=== PATIENT | female | born 1960 | race Caucasian/White ===

== ENCOUNTER → 2017-11-06 18:55 | Outpatient (CLI) | payer MEDICAID | END | disposition home or self-care (01) | LOC: D.MAMMO 15:45 | DX: Z12.31 Encounter for screening mammogram for malignant neoplasm of breast (principal) ==

== ENCOUNTER → 2017-12-04 11:21 | Outpatient (CLI) | payer MEDICAID | END | disposition home or self-care (01) | LOC: D.LABREF 11:21 | DX: E11.9 Type 2 diabetes mellitus without complications (principal) ==

== ENCOUNTER → 2017-12-04 12:21 | Outpatient (CLI) | payer MEDICAID | END | disposition home or self-care (01) | LOC: D.LABREF 12:21 | PROVIDERS: Orthopaedic Surgery | DX: M16.12 Unilateral primary osteoarthritis, left hip (principal); Z11.8 Encounter for screening for other infectious and parasitic diseases ==

== ENCOUNTER 2018-01-02 09:30 | Inpatient (IN) | payer MEDICAID ==
[~2018-01-02] VITALS: Ht 175.3 cm; Wt 74.1 kg
--- NOTE | ~2018-01-02 | MORECARE ---
CASE MANAGEMENT DISCHARGE SUMMARY PATIENT: VISH BRUNO UNIT: [id number] ADM DATE: 01/07/18 AGE: 57 : 64 SEX: F ROOM/BED: D.2208 AUTHOR: SATHYA,DOC PHYSICIAN: REFERRING PHYSICIAN: DAHLIA MAGANA MD DATE OF SERVICE: 01/08/18 Discharge Plan Patient Name: VISH BRUNO Facility: [facility]:[place] : 1960 Planned Disposition: Home Anticipated Discharge Date: Discharge Date: Expected LOS: Initial Reviewer: [email or web address] Initial Review Date: 01/07/2018 Generated: 01/08/18 11:52 am Comments DCP- Discharge Planning Updated by [email or web address]: Jaylene Montanez on 01/08/18 9:[address] Patient Name: VISH BRUNO Admission Status: Elective Accout number: [id number] Admission Date: 01-07-2018 : 1960 Admission Diagnosis: Attending: DAHLIA MAGANA Current LOS: 1 Anticipated DC Date: Planned Disposition: Home Primary Insurance: [employer] OPTIONS ALEXANDER Discharge Planning Comments: CM met with patient to assess discharge planning needs. Patient plans to discharged to [facility] to recover. I explained to her that her insurance would probably not cross state lines, so she would not be able to get home health. She stated that she will be back in 2 weeks & that her daughter workd for healthcare. She denies any DME & will need a walker and BCS prior to discharge. I told her I would talk with her daughter when she came to the hospital. CM will continue to follow and assist with DC planning Handling Tech: Jaylene Montanez DCPIA - Discharge Planning Initial Assessment Updated by [email or web address]: Jaylene Montanez on 01/08/18 10:42 am * Is the patient Alert and Oriented? Yes * How many steps to enter\exit or inside your home? * PCP Arley * Pharmacy [facility] [address] * Preadmission Environment Home with Family * ADLs Independent * Equipment None * List name and contact numbers for known caregivers / representatives who currently or will assist patient after discharge: Maggy Job * Verbal permission to speak to the caregivers and representatives has been obtained from the patient. Yes * Community resources currently utilized None * Additional services required to return to the preadmission environment? Yes * Can the patient safely return to the preadmission environment? Yes * Has this patient been hospitalized within the prior 30 days at any hospital? No Last DP export: 01/08/18 9:42 Patient Name: VISH BRUNO Page [id number] at 1052 All edits/amendments must be made on the electronic document DICTATION DATE: 01/08/181050 MATERIAL HANDLER 1ST SHIFT: DM 01/08/181050 RPT#: [id number] DC DATE: STATUS: ADM IN [facility] [address] [place] [address] END OF REPORT
--- NOTE | ~2018-01-02 | OP ---
PATIENT NAME: VISH BRUNO MEDICAL RECORD: [id number] :64 LOCATION:D.MS Dumont2208 ADMISSION DATE:01/07/18 SURGEON: DAHLIA MAGANA MD DATE OF OPERATION: 01/07/2018 PREOPERATIVE DIAGNOSIS: Severe osteoarthritis, left hip. POSTOPERATIVE DIAGNOSIS: Severe osteoarthritis, left hip. PROCEDURE: Left total hip arthroplasty. SURGEON: Dahlia Magana MD ANESTHESIA: General. INTRAOPERATIVE COMPLICATIONS: None. SUMMARY OF PATHOLOGIC FINDINGS: The patient has a substantial osteoarthritis of the left hip consistent with the preoperative radiographs. IMPLANTS USED: Michaela Accolade II with a Trident II cup size 5, Accolade stem size 36 alpha code E, polyethylene insert, 36 + 0 femoral head, and a 52 E cluster hole Tritanium 2 cup. OPERATIVE SUMMARY IN DETAIL: After obtaining the appropriate preoperative orthopedic surgery consent as well as anesthetic consultation, evaluation, and clearance, the patient was brought to the operating room and placed on the operating table in supine position. After general laryngeal mask airway was administered, the patient was placed in a right lateral decubitus position. All pressure points were well padded to include down leg peroneal pad as well as axillary roll. The patient was held firmly to the operating room table using the vacuum pack suction system. Left lower extremity and hip were then prepped and draped in a routine sterile fashion. Curvilinear incision made of the greater trochanter, taken down to the level of the IT band, was split in line with fibers of the IT band to reveal the gluteus medius and minimus. The gluteus medius and minimus were reflected anteriorly. The hip capsule was incised in a T-type fashion followed by dislocation of the hip joint. The proximal neck cutting guide for the Accolade II system was utilized to create the proximal neck cut. This was then followed by complete exposure of the acetabulum. Circumferential labrectomy was then followed by serial and sequential reaming to 51 for placement of a Trident II 52 cup. Trident II 52 cup went in very nicely with good capture. Polyethylene was then snapped into place and checked for stability. Attention was then returned to the proximal femur where serial and sequential reaming and broaching were done for a size 5 Accolade II TMZF coated stem, which was put into place. Trials were then undertaken. It was felt that the +0 head was the most appropriate and +0 head was stamped into place in a Mendes taper. The hip was reduced, taken through range of motion and found to be stable in all planes. Intraoperative radiographs showed good position and placement with reestablishment of the patient's leg length. Wound was copiously irrigated at this multiple points. Hip capsule was closed with #2 Ethibond followed by #5 reapproximation of the gluteus medius and minimus in a transosseous fashion back to the greater trochanter. Having completed this, the IT band was closed using #2 Ethibond. This was then followed by #1 Vicryl, 2-0 Vicryl and skin patricia. Sterile dressings were applied. The patient was awakened, taken to recovery room in OPERATIVE REPORT [id number] VISH BRUNO stable condition. All final needle and sponge counts were correct. TRANSINT:[id number] Voice Confirmation ID: [id number] DOCUMENT ID: [id number] 01/21/2018 Edited to correct date of service, dm. CHINO LUNA, DAHLIA MCPHERSON at 1512 CC: [id number] DICTATION DATE: 01/11/18 1300 ASSISTANT REFINERY OPERATOR: 01/11/18 1310 DIS IN 01/09/18 [facility] [address] [place] [address]
--- NOTE | ~2018-01-02 | MORECARE ---
CASE MANAGEMENT DISCHARGE SUMMARY PATIENT: VISH BRUNO UNIT: [id number] ADM DATE: 01/07/18 AGE: 57 : 64 SEX: F ROOM/BED: D.2208 AUTHOR: SATHYA,DOC PHYSICIAN: REFERRING PHYSICIAN: DAHLIA MAGANA MD DATE OF SERVICE: 01/14/18 Discharge Plan Patient Name: VISH BRUNO Facility: [facility]:[place] : 1960 Planned Disposition: Home Anticipated Discharge Date: Discharge Date: 01/09/2018 Expected LOS: 0 Initial Reviewer: [email or web address] Initial Review Date: 01/07/2018 Generated: 01/14/18 11:12 am Comments DCP- Discharge Planning Updated by [email or web address]: Jaylene Montanez on 01/08/18 9:[address] Patient Name: VISH BRUNO Admission Status: Elective Accout number: [id number] Admission Date: 01-07-2018 : 1960 Admission Diagnosis: Attending: DAHLIA MAGANA Current LOS: 1 Anticipated DC Date: Planned Disposition: Home Primary Insurance: [employer] PRVT OPTIONS ALEXANDER Discharge Planning Comments: CM met with patient to assess discharge planning needs. Patient plans to discharged to [facility] to recover. I explained to her that her insurance would probably not cross state lines, so she would not be able to get home health. She stated that she will be back in 2 weeks & that her daughter workd for healthcare. She denies any DME & will need a walker and BCS prior to discharge. I told her I would talk with her daughter when she came to the hospital. CM will continue to follow and assist with DC planning Brim Raiser: Jayleen Montanez DCPIA - Discharge Planning Initial Assessment Updated by [email or web address]: Jaylene Montanez on 01/08/18 10:42 am * Is the patient Alert and Oriented? Yes * How many steps to enter\exit or inside your home? * PCP Arley * Pharmacy [facility] [address] * Preadmission Environment Home with Family * ADLs Independent * Equipment None * List name and contact numbers for known caregivers / representatives who currently or will assist patient after discharge: Maggy Job * Verbal permission to speak to the caregivers and representatives has been obtained from the patient. Yes * Community resources currently utilized None * Additional services required to return to the preadmission environment? Yes * Can the patient safely return to the preadmission environment? Yes * Has this patient been hospitalized within the prior 30 days at any hospital? No Last DP export: 01/08/18 9:52 Patient Name: VISH BRUNO Page [id number] at 1012 All edits/amendments must be made on the electronic document DICTATION DATE: 01/14/18 1012 EMBALMER ASSISTANT: OLIVER 01/14/18 1012 RPT#: [id number] DC DATE:01/09/18 STATUS: DIS IN [facility] [address] [place] [address] END OF REPORT
--- NOTE | ~2018-01-02 | MORECARE ---
CASE MANAGEMENT DISCHARGE SUMMARY PATIENT: VISH BRUNO UNIT: [id number] ADM DATE: 01/07/18 AGE: 57 : 64 SEX: F ROOM/BED: D.2208 AUTHOR: JEROME MCDONNELL PHYSICIAN: REFERRING PHYSICIAN: ADHLIA MAGANA MD DATE OF SERVICE: 01/08/18 Discharge Plan Patient Name: VISH BRUNO [facility] [facility] 1960 Planned Disposition: Home Anticipated Discharge Date: Discharge Date: Expected LOS: Initial Reviewer: [email or web address] Initial Review Date: 01/07/2018 Generated: 01/08/18 11:42 am DCPIA - Discharge Planning Initial Assessment Updated by [email or web address]: Jaylene Montanez on 01/08/18 10:42 am * Is the patient Alert and Oriented? Yes * How many steps to enter\exit or inside your home? * PCP Arley * [facility] [address] [facility] [facility] * Preadmission Environment Home with Family * ADLs Independent * Equipment None * List name and contact numbers for known caregivers / representatives who currently or will assist patient after discharge: Maggy Bruno * Verbal permission to speak to the caregivers and representatives has been obtained from the patient. Yes * Community resources currently utilized None * Additional services required to return to the preadmission environment? Yes * Can the patient safely return to the preadmission environment? Yes * Has this patient been hospitalized within the prior 30 days at any hospital? No Patient Name: VISH BRUNO Page 12103 at 1042 All edits/amendments must be made on the electronic document DICTATION DATE: 01/08/18 1042 POST ANESTHESIA NURSE: OLIVER 01/08/18 1042 RPT#: [id number] DC DATE: STATUS: ADM IN [facility] [address] [place] [address] END OF REPORT
[~2018-01-02 09:30] MED LIST: COZAAR25 MG PO; GLIMEPIRIDE2 MG PO; GLUCOPHAGE1000 MG PO; LIPITOR10 MG PO; ULTRAM50 MG PO
[2018-01-02 12:41] LABS: BASOPHILS 0.5 % (0-2); EOSINOPHILS 4.1 % (0-7); HEMATOCRIT 43.2 % (36.0-48.0); HEMOGLOBIN 14.3 g/dL (12-16); IMMATURE GRANULOCYTES 0.6 % (0-5); MCH 30.8 pg (26.0-34.0); MCHC 33.1 g/dL (31.0-37.0); MCV 92.9 fL (80.0-100.0); MONOCYTES 6.7 % (2-11); NEUTROPHILS 64.1 % (40-80); PLATELET COUNT 253 10x3/uL (130-400); RBC 4.65 10x6/uL (4.00-5.40); RDW 13.5 % (11.5-14.5); WBC 10.1 10x3/uL (4.8-10.8)
[2018-01-02 12:59] LABS: CALC OSMOLALITY 281 mosm/kg (275-300); CALCIUM 9.2 mg/dL (8.5-10.1); CARBON DIOXIDE 26.5 mmol/L (21.0-32.0); CHLORIDE - SERUM 102 mmol/L (98-107); CREATININE - SERUM 0.8 mg/dL (0.6-1.3); GLUCOSE 125 mg/dL (74-106); POTASSIUM - SERUM 4.2 mmol/L (3.5-5.1); SODIUM 141 mmol/L (136-145); UREA NITROGEN 13 mg/dL (7-18); eGFR NON AFRICAN AMERICAN 79 mL/min (90-120)
[2018-01-02 13:00] LABS: APTT 31.8 SECONDS (22.8-39.4); INR 0.99 (0.85-1.17); PROTIME 12.7 SECONDS (11.6-15.0)
[2018-01-02 13:57] LABS: APPEARANCE CLEAR (CLEAR); BILIRUBIN NEGATIVE (NEGATIVE); COLOR YELLOW (YELLOW); GLUCOSE 250 mg/dL (NEGATIVE); KETONE NEGATIVE (NEGATIVE); NITRITE NEGATIVE (NEGATIVE); PROTEIN TRACE mg/dL (NEGATIVE); SPECIFIC GRAVITY 1.025 (1.005-1.020); UROBILINOGEN NORMAL (NORMAL)
[2018-01-02 14:05] LABS: EPITHELIAL CELLS 0-5 /hpf (0-5); WHITE CELLS - URINE RARE /hpf (0-5)
[2018-01-02 14:08] LABS: BACTERIA MODERATE /hpf (NONE SEEN); CALCIUM OXALATE CRYSTALS 25-50 /hpf (NONE SEEN); MUCUS >1+ /lpf (NONE SEEN); RED CELLS - URINE 0-5 /hpf (0-5)
[2018-01-07 06:01] VITALS: BP 105/63; BMI 24.2
[2018-01-07 10:28] VITALS: BP 103/64
[2018-01-07 14:01] VITALS: BP 103/64; Ht 175.3 cm; Wt 74.1 kg
[2018-01-07 21:25] VITALS: BP 111/72
[2018-01-08 04:36] VITALS: BP 117/80
[2018-01-08 04:49] LABS: HEMATOCRIT 35.4 % (36.0-48.0); HEMOGLOBIN 11.7 g/dL (12-16); MCH 30.5 pg (26.0-34.0); MCHC 33.1 g/dL (31.0-37.0); MCV 92.4 fL (80.0-100.0); MEAN PLATELET VOLUME 10.1 fL (7.4-10.4); RBC 3.83 10x6/uL (4.00-5.40); RDW 13.6 % (11.5-14.5); WBC 9.6 10x3/uL (4.8-10.8)
[2018-01-08 08:26] VITALS: BP 118/46
[2018-01-08 12:00] VITALS: BP 117/73
[2018-01-08 16:09] VITALS: BP 130/76
[2018-01-08 21:21] VITALS: BP 99/54
[2018-01-09 05:10] VITALS: BP 101/62
[2018-01-09 05:45] LABS: HEMATOCRIT 33.8 % (36.0-48.0); MCHC 32.5 g/dL (31.0-37.0); MCV 92.1 fL (80.0-100.0); MEAN PLATELET VOLUME 10.4 fL (7.4-10.4); RBC 3.67 10x6/uL (4.00-5.40); RDW 13.4 % (11.5-14.5); WBC 8.8 10x3/uL (4.8-10.8)
[2018-01-09 08:30] VITALS: BP 134/50
[2018-01-09 12:45] VITALS: BP 126/58
[2018-01-09] MEDS ORDERED: NORCO 10-325 TA1 TAB PO (14:20)
[2018-01-09] MEDS ORDERED: ELIQUIS2.5 MG PO (14:20)
== END 2018-01-09 17:17 | disposition home or self-care (01) | DRG 470 ==
LOC: D.SDCHOLD 10:00 → D.MS 01-07 05:55 → D.SDCHOLD 01-07 07:30 → D.MS 01-07 10:15
PROVIDERS: Orthopaedic Surgery
PROC: 0SRB0JZ Replacement of Left Hip Joint with Synthetic Substitute, Open Approach (ICD-10-PCS; principal; 2018-01-07 07:30)
DX: M16.12 Unilateral primary osteoarthritis, left hip (principal); I10 Essential (primary) hypertension; E11.9 Type 2 diabetes mellitus without complications

== ENCOUNTER → 2018-07-23 16:59 | Outpatient (CLI) | payer MEDICAID ==
[2018-01-07 14:01] VITALS: BMI 24.1
[~2018-07-23 16:59] MED LIST changes: +ELIQUIS2.5 MG PO; +NORCO 10-325 TA1 TAB PO
== END | disposition home or self-care (01) ==
LOC: D.LABREF 16:59
PROVIDERS: ATTEND Orthopaedic Surgery
DX: M19.011 Primary osteoarthritis, right shoulder (principal); Z11.8 Encounter for screening for other infectious and parasitic diseases

== ENCOUNTER 2018-07-25 12:19 | Inpatient (IN) | payer MEDICAID ==
[2018-08-07] MEDS ORDERED: CRESTOR10 MG PO (14:01)
[2018-08-07] MEDS ORDERED: ULTRAM50 MG PO (14:02)
[2018-08-07] MEDS ORDERED: ZANAFLEX4 MG PO (14:02)
[2018-08-07] MEDS ORDERED: [UNRECOGNIZED DRUG - OTHER] HHN (14:11)
[2018-08-07 14:39] LABS: BASOPHILS 0.3 % (0-2); EOSINOPHILS 3.3 % (0-7); HEMATOCRIT 43.1 % (36.0-48.0); HEMOGLOBIN 14.5 g/dL (12-16); IMMATURE GRANULOCYTES 0.4 % (0-5); LYMPHOCYTES 23.1 % (15-50); MCH 30.6 pg (26.0-34.0); MCHC 33.6 g/dL (31.0-37.0); MCV 90.9 fL (80.0-100.0); MEAN PLATELET VOLUME 10.1 fL (7.4-10.4); MONOCYTES 5.8 % (2-11); NEUTROPHILS 67.1 % (40-80); RBC 4.74 10x6/uL (4.00-5.40); RDW 13.6 % (11.5-14.5); WBC 10.3 10x3/uL (4.8-10.8)
[2018-08-07 14:48] LABS: INR 1.01 (0.85-1.17); PROTIME 12.8 SECONDS (11.6-15.0)
[2018-08-07 14:49] LABS: APTT 31.9 SECONDS (22.8-39.4)
[2018-08-07 14:55] LABS: PLATELET COUNT 255 10x3/uL (130-400)
[2018-08-07 15:05] LABS: APPEARANCE CLEAR (CLEAR); COLOR YELLOW (YELLOW); SPECIFIC GRAVITY 1.025 (1.005-1.020)
[2018-08-07 15:06] LABS: BILIRUBIN NEGATIVE (NEGATIVE); EPITHELIAL CELLS 0-5 /hpf (0-5); GLUCOSE NEGATIVE (NEGATIVE); KETONE NEGATIVE (NEGATIVE); NITRITE NEGATIVE (NEGATIVE); PROTEIN NEGATIVE (NEGATIVE); RED CELLS - URINE 0-5 /hpf (0-5); UROBILINOGEN NORMAL (NORMAL); WHITE CELLS - URINE 0-5 /hpf (0-5)
[2018-08-07 15:07] LABS: BACTERIA MODERATE /hpf (NONE SEEN); YEAST <1+ /hpf (NONE SEEN)
[2018-08-07 15:10] LABS: CALC OSMOLALITY 281 mosm/kg (275-300); CALCIUM 8.9 mg/dL (8.5-10.1); CARBON DIOXIDE 27.3 mmol/L (21.0-32.0); CHLORIDE - SERUM 101 mmol/L (98-107); CREATININE - SERUM 0.8 mg/dL (0.6-1.3); POTASSIUM - SERUM 4.1 mmol/L (3.5-5.1); SODIUM 138 mmol/L (136-145); UREA NITROGEN 13 mg/dL (7-18); eGFR NON AFRICAN AMERICAN 78 mL/min (90-120)
[2018-08-07 15:14] LABS: GLUCOSE 203 mg/dL (74-106)
--- NOTE | 2018-08-08 00:03 | NUR ---
PT WOKE VOMITTING. PROVIDED BED CHANGE. ASSISTED WITH TOILETING. RETURNED PT SCD'S. DENIES FURTHER NEEDS AT THIS TIME.
[2018-08-08 06:35] VITALS: BP 112/67; BMI 24.2
[2018-08-08 10:16] VITALS: BP 99/41; BMI 24.2
--- NOTE | 2018-08-08 10:31 | NUR ---
REC'VD PT AT 1007 99/41.85.97.6.94% ON 2 LITERS O2 NC. 97.4. SLOW TO RESPOND. NO S/S OF ACUTE DISTRESS. CL IN PLACE.
[2018-08-08 13:07] VITALS: BP 134/58
[2018-08-08 17:23] VITALS: BP 135/68
--- NOTE | 2018-08-08 18:54 | NUR ---
ASSITED PT TO BR. STEADY GAIT. NO S/S OF ACUTE DISTRESS. EDUCATION ON DAY CARE PROVIDER REINTERATED. CL IN PLACE. SLING TO R ARM INTACT.
--- NOTE | 2018-08-08 19:32 | NUR ---
SLIGHTY DROWSY WHEN ENTERING THE ROOM. AND GRANDSON AT BEDSIDE. RIGHT SHOULDER SLING IN PLACE WITH DRESSING OVER INCISION. FINGERS WARM TO TOUCH. PATIENT ABLE TO MOVE FINGERS BUT GRIMACES WHEN ASKED TO WIGGLE. CAP REFILL LESS THAN 3 SECONDS. PT HAS LEFT FOREARM IV THAT IS PATENT AND DRESSING ADHERED TO SKIN. INFUSING 1/2 NS @ 75. MORPHINE STATISTICAL TYPIST IN USE AND PATIENT DEMONSTRATES HOW TO USE STATISTICAL TYPIST EFFECTIVELY. PROVIDED PT TEACHING OF STATISTICAL TYPIST. PT VERBALZIES UNDERSTANDING. PT STATES INTERMITTENT NAUSEA AND VOMITTING. DENIES ZOFRAN AT THIS TIME BUT STATES "I HELD DOWN MY DINNER." CALL LIGHT IN REACH OF PATIENT. REQUESTS ICE PACK. PROVIDED.
[2018-08-08 21:43] VITALS: BP 107/59
[2018-08-09 03:05] VITALS: BP 100/50
[2018-08-09 06:13] VITALS: BP 114/57
--- NOTE | 2018-08-09 07:47 | NUR ---
AAOX4. ON ROOM AIR, LEFT FOREARM IV PATENT, INFUSING 1/2NS AT 75ML/HR. SLING TO RIGHT SHOULDER, BRISK LESS THAN 3 SEC CAP REFILLS TO RIGHT HAND, ELEVATED SHOULDER/ARM ON PILLOWS. APPLIED ICE, DILAUDID CUT OUT STITCHER AT 0.2/12/20, STATES "DOESN'T HELP CONTROL PAIN" SCD'S PRESENT, DENIES ANY CURRENT NEEDS OR DISCOMFORTS, BED LOWERED AND LOCKED, CALL LIGHT WITHIN REACH. CPOC
[2018-08-09] MEDS ORDERED: PERCOCET 10-321 EAC1 PO (07:49)
[2018-08-09] MEDS ORDERED: ZOFRAN ODT4 MG/UDTAB PO (07:50)
[2018-08-09 09:05] VITALS: BP 156/68
--- NOTE | 2018-08-09 10:18 | MORECARE ---
CASE MANAGEMENT DISCHARGE SUMMARY PATIENT: VISH BRUNO UNIT: [id number] ADM DATE: 08/08/18 AGE: 58 : 64 SEX: F ROOM/BED: D.2236 AUTHOR: JEROME MCDONNELL PHYSICIAN: REFERRING PHYSICIAN: DAHLIA MAGANA MD DATE OF SERVICE: 08/09/18 Discharge Plan Patient Name: VISH BRUNO [facility] [facility] 1960 Planned Disposition: Home Anticipated Discharge Date: 08/09/18 Discharge Date: Expected LOS: 1 Initial Reviewer: [email or web address] Initial Review Date: 08/09/2018 Generated: 08/09/18 11:17 am DCPIA - Discharge Planning Initial Assessment Updated by [email or web address]: Kelle Miles on 08/09/18 10:18 am * Is the patient Alert and Oriented? Yes * How many steps to enter\exit or inside your home? 2/0 * PCP Dr. Tubbs * Pharmacy [facility] on [address] * Preadmission Environment Home with Family * ADLs Independent * Equipment Bedside Commode Walker * Other Equipment Sling * List name and contact numbers for known caregivers / representatives who currently or will assist patient after discharge: Avery Ceballos [phone] * Verbal permission to speak to the caregivers and representatives has been obtained from the patient. Yes * Community resources currently utilized None * Additional services required to return to the preadmission environment? No * Can the patient safely return to the preadmission environment? Yes * Has this patient been hospitalized within the prior 30 days at any hospital? No Patient Name: VISH BRUNO Page 01556 at 1018 All edits/amendments must be made on the electronic document DICTATION DATE: 08/09/18 1017 VEHICLE FUEL SYSTEMS CONVERTER: OLIVER 08/09/18 1017 RPT#: [id number] DC DATE: STATUS: ADM IN [facility] [address] [place] [address] END OF REPORT
--- NOTE | 2018-08-09 10:25 | MORECARE ---
CASE MANAGEMENT DISCHARGE SUMMARY PATIENT: VISH BRUNO UNIT: [id number] ADM DATE: 08/08/18 AGE: 58 : 64 SEX: F ROOM/BED: D.2236 AUTHOR: SATHYA,DOC PHYSICIAN: REFERRING PHYSICIAN: DAHLIA MAGANA MD DATE OF SERVICE: 08/09/18 Discharge Plan Patient Name: VISH BRUNO Facility: [facility]:[place] : 1960 Planned Disposition: Home Anticipated Discharge Date: 08/09/18 Discharge Date: Expected LOS: 1 Initial Reviewer: [email or web address] Initial Review Date: 08/09/2018 Generated: 08/09/18 11:25 am Comments DCP- Discharge Planning Updated by [email or web address]: Kelle Miles on 08/09/18 9:[address] Patient Name: VISH BRUNO Admission Status: Elective Accout number: [id number] Admission Date: 08-08-2018 : 1960 Admission Diagnosis: Attending: DAHLIA MAGANA Current LOS: 1 Anticipated DC Date: 08-09-2018 Planned Disposition: Home Primary Insurance: [employer] PRVT OPTIONS ALEXANDER Discharge Planning Comments: CM met with patient to complete initial dc planning assessment. CM educated patient on the CM role and verbal consent given by patient to complete assessment. Patient lives at home with her mother in law and significant other. At discharge patient plans to return and feels this is a safe discharge. CM discussed availability of home health, rehab services, and medical equipment. Patient denied known discharge needs at this time. States Avery Hebert will drive her home. No needs identified. CM will continue to follow and will assist as needed with dc plans/needs. Manager Land: Kelle Miles DCPIA - Discharge Planning Initial Assessment Updated by [email or web address]: Kelle Miles on 08/09/18 10:18 am * Is the patient Alert and Oriented? Yes * How many steps to enter\exit or inside your home? 2/0 * PCP Dr. Tubbs * Pharmacy [facility] [address] * Preadmission Environment Home with Family * ADLs Independent * Equipment Bedside Commode Walker * Other Equipment Sling * List name and contact numbers for known caregivers / representatives who currently or will assist patient after discharge: Avery Ceballos - [phone] * Verbal permission to speak to the caregivers and representatives has been obtained from the patient. Yes * Community resources currently utilized None * Additional services required to return to the preadmission environment? No * Can the patient safely return to the preadmission environment? Yes * Has this patient been hospitalized within the prior 30 days at any hospital? No Last DP export: 08/09/18 9:18 a Patient Name: VISH BRUNO Page 54865 at 1025 All edits/amendments must be made on the electronic document DICTATION DATE: 08/09/18 1025 SLIP BRIDGE OPERATOR: OLIVER 08/09/18 1025 RPT#: [id number] DC DATE: STATUS: ADM IN [facility] [address] [place] [address] END OF REPORT
--- NOTE | 2018-08-09 10:31 | NUR ---
ADMINISTERED PRN PO PAIN MEDICATION PER ORDER. PAIN LEVEL 10/. ICE APPLIED, SUPPORTED WITH PILLOWS, DENIES ANY OTHER NEEDS OR DISCOMFORTS, BED LOWERED AND LOCKED, CALL LIGHT WITHIN REACH. CPOC
--- NOTE | 2018-08-09 12:02 | NUR ---
DISCHARGE INSTRUCTIONS GIVEN, VERBALIZES UNDERSTANDING, IV TO LEFT FOREARM, DISCONTINUED CATHETER TIP INTACT, DENIES ANY CURRENT QUESTIONS OR CONCERNS. TRANSPORTED OFF UNIT VIA WHEELCHAIR.
--- NOTE | 2018-08-10 15:46 | MORECARE ---
CASE MANAGEMENT DISCHARGE SUMMARY PATIENT: VISH BRUNO UNIT: [id number] ADM DATE: 08/08/18 AGE: 58 : 64 SEX: F ROOM/BED: D.2236 AUTHOR: SATHYA,DOC PHYSICIAN: REFERRING PHYSICIAN: DAHLIA MAGANA MD DATE OF SERVICE: 08/10/18 Discharge Plan Patient Name: VISH BRUNO Facility: [facility]:[place] : 1960 Planned Disposition: Home Anticipated Discharge Date: 08/09/18 Discharge Date: 08/09/2018 Expected LOS: 1 Initial Reviewer: [email or web address] Initial Review Date: 08/09/2018 Generated: 08/10/18 4:46 pm Comments DCP- Discharge Planning Updated by [email or web address]: Kelle Miles on 08/09/18 9:[address] Patient Name: VISH BRUNO Admission Status: Elective Accout number: [id number] Admission Date: 08-08-2018 : 1960 Admission Diagnosis: Attending: DAHLIA MAGANA Current LOS: 1 Anticipated DC Date: 08-09-2018 Planned Disposition: Home Primary Insurance: [employer] [facility] Discharge Planning Comments: CM met with patient to complete initial dc planning assessment. CM educated patient on the CM role and verbal consent given by patient to complete assessment. Patient lives at home with her mother in law and significant other. At discharge patient plans to return and feels this is a safe discharge. CM discussed availability of home health, rehab services, and medical equipment. Patient denied known discharge needs at this time. States Avery Hebert will drive her home. No needs identified. CM will continue to follow and will assist as needed with dc plans/needs. District Manager In Training: Kelle Miles DCPIA - Discharge Planning Initial Assessment Updated by [email or web address]: Kelle Miles on 08/09/18 10:18 am * Is the patient Alert and Oriented? Yes * How many steps to enter\exit or inside your home? 2/0 * PCP Dr. Tubbs * Pharmacy [facility] [address] * Preadmission Environment Home with Family * ADLs Independent * Equipment Bedside Commode Walker * Other Equipment Sling * List name and contact numbers for known caregivers / representatives who currently or will assist patient after discharge: Avery Ceballos - [phone] * Verbal permission to speak to the caregivers and representatives has been obtained from the patient. Yes * Community resources currently utilized None * Additional services required to return to the preadmission environment? No * Can the patient safely return to the preadmission environment? Yes * Has this patient been hospitalized within the prior 30 days at any hospital? No Last DP export: 08/09/18 9:25 a Patient Name: VISH BRUNO Page 24711 at 1546 All edits/amendments must be made on the electronic document DICTATION DATE: 08/10/181544 CLEANER AND DYER: OLIVER 08/10/18 1545 RPT#: [id number] HI DATE:08/09/18 STATUS: DIS IN [facility] [address] [place] [address] END OF REPORT
--- NOTE | 2018-08-26 07:57 | OP ---
PATIENT NAME: VISH BRUNO MEDICAL RECORD: [id number] :[birth year] LOCATION:D.MS Dumont2236 ADMISSION DATE:08/08/18 SURGEON: DAHLIA MAGANA MD DATE OF OPERATION: 08/08/2018 PREOPERATIVE DIAGNOSIS: Glenohumeral arthritis of the right shoulder. POSTOPERATIVE DIAGNOSIS: Glenohumeral arthritis of the right shoulder. PROCEDURE: Right total shoulder arthroplasty. SURGEON: Dahlia Magana MD TRAINING ENGINEER: Jennifer Johnson. INTRAOPERATIVE COMPLICATIONS: None. SUMMARY OF PATHOLOGIC FINDINGS: The patient's glenohumeral arthrosis is consistent with preoperative radiographs diagnosis. IMPLANTS USED: Arthrex Univers system with a size medium VaultLock, size 10 Univers [place] humeral stem, and a size 48 x 19 humeral head. OPERATIVE SUMMARY IN DETAIL: After obtaining the appropriate preoperative orthopedic surgery consent as well as anesthetic consultation, evaluation and clearance, the patient was brought to the operating room and placed on the operating table in supine position. After general laryngeal mask airway was administered, the patient was placed in the beach chair position. All pressure points were padded. She was held firmly to the operating table in the vacuum pack suction system. The patient's right upper shoulder were then prepped and draped in routine sterile fashion. The arm was held in the Arthrex traction boom at 30 degrees of forward flexion, 30 degrees of abduction, 10 pounds of traction laterally. Deltopectoral incision was taken down. The clavipectoral fascia was incised. The cephalic vein was identified and retracted laterally and protected throughout the case. Brown retractor was utilized to retract the deltoid ligament laterally and the retractor was utilized to gently retract the conjoined tendon. Subscapularis was taken down, biceps tendon was tagged and excised for later reapproximation. Subscap was reflected and the humeral head was then dislocated into the incision. Proximal humeral head cut was made using humeral cutting guide for the Brookline Univers system. Serial and sequential reaming and broaching were done for a size 10 trial with the cut protection guide was placed over the humeral head. Attention was then turned to the glenoid. Circumferential labrectomy and residual biceps tenotomy was followed by placement of the guide pin using the guide for the medial glenoid. Reaming was then followed by final preparation of the glenoid for insertion of the VaultLock system. The glenoid was irrigated with epinephrine laden water and dried and then the medium VaultLock glenoid was tamped into place. All excess cement was removed. After the cement was allowed to harden, attention was then returned to the proximal humerus. Size 10 was then put into place, tamped in gently, inferior screw was then tightened followed by the superior screw. The size 48 x 19 head was placed in the appropriate position for maximal coverage and tamped into place with Mendes OPERATIVE REPORT [id number] VISH BRUNO. Shoulder was relocated. At this point, the subscapularis was reapproximated to the supraspinatus and the subscapularis was tied down to the lesser tuberosity with transosseous sutures done by Jennifer Johnson, this closure did incorporate the biceps tendon. Having completed this, final skin closure again achieved by Jennifer Johnson with #1 Vicryl, 2-0 Vicryl, and skin patricia. Sterile dressings were applied. The patient was awakened and taken to the recovery room in stable condition. All final needle and sponge counts were correct. TRANSINT:[id number] Voice Confirmation ID: [id number] DOCUMENT ID: [id number] 08/23/2018 Edited to right, [email or web address]. CHINO LUNA, DAHLIA MCPHERSON at 0757 CC: [id number] DICTATION DATE: 08/09/18611 MANAGER OF TRANSPORTATION: 08/09/18 1052 DIS IN 08/09/18 [facility] [address] [place] [address]
== END 2018-08-09 12:04 | disposition home or self-care (01) | DRG 483 ==
LOC: D.MS 08-08 05:30 → D.SDCHOLD 08-08 05:30 → D.MS 08-08 09:34
PROVIDERS: ADMIT Orthopaedic Surgery; ATTEND Orthopaedic Surgery
PROC: 0RRK0JZ Replacement of Left Shoulder Joint with Synthetic Substitute, Open Approach (ICD-10-PCS; principal; 2018-08-08 07:30)
DX: M19.012 Primary osteoarthritis, left shoulder (principal)

== ENCOUNTER 2018-12-16 10:23 | Day surgery (SDC) | payer MEDICAID ==
[~2018-12-16] VITALS: Ht 175.3 cm; Wt 74.4 kg
[~2018-12-16 10:23] MED LIST changes: +CRESTOR10 MG PO; +FLUTICASONE PRO16 GM NASAL; +LISINOPRIL10 MG PO; +PERCOCET 10-321 EAC1 PO; +ZANAFLEX4 MG PO; +ZOFRAN ODT4 MG/UDTAB PO; +[UNRECOGNIZED DRUG - OTHER] HHN
[2018-12-16 10:49] LABS: ANION GAP 12.4 mmol/L (8-16); CALCIUM 9.1 mg/dL (8.5-10.1); CARBON DIOXIDE 29.3 mmol/L (21.0-32.0); CREATININE - SERUM 0.9 mg/dL (0.6-1.3); HEMATOCRIT 45.6 % (36.0-48.0); HEMOGLOBIN 15.3 g/dL (12-16); MCHC 33.6 g/dL (31.0-37.0); MCV 92.3 fL (80.0-100.0); POTASSIUM - SERUM 3.7 mmol/L (3.5-5.1); RBC 4.94 10x6/uL (4.00-5.40); RDW 14.2 % (11.5-14.5); WBC 9.9 10x3/uL (4.8-10.8)
[2018-12-16 11:17] VITALS: BP 134/51; Ht 175.3 cm; Wt 74.4 kg
[2018-12-16] MEDS ORDERED: DILAUDID2 MG PO (15:48)
--- NOTE | 2018-12-16 17:05 | NUR ---
DC INSTRUCTIONS GIVEN TO PT/FAMILY. STATE UNDERSTANDING. DC'D IV CATH FULLY INTACT. PT LEFT UNIT VIA WC AT 1705
--- NOTE | 2018-12-18 09:08 | OP ---
PATIENT NAME: VISH BRUNO MEDICAL RECORD: [id number] :64 LOCATION:[facility] ADMISSION DATE: SURGEON: DAHLIA MAGANA MD DATE OF OPERATION: 12/16/2018 PREOPERATIVE DIAGNOSES: 1. Adhesive capsulitis of the right shoulder. 2. History of total shoulder arthroplasty of the right shoulder. POSTOPERATIVE DIAGNOSES: 1. Adhesive capsulitis of the right shoulder. 2. History of total shoulder arthroplasty of the right shoulder. PROCEDURE: Manipulation of adhesive capsulitis of the right shoulder. SURGEON: Dahlia Magana MD ANESTHESIA: TIVA with a supraclavicular block. INTRAOPERATIVE COMPLICATIONS: None. SUMMARY OF PATHOLOGIC FINDINGS: The patient did indeed have adhesive capsulitis with excellent breakdown of the inferior adhesions with adduction manipulation as well as forward flexion. OPERATIVE SUMMARY IN DETAIL: After obtaining the appropriate preoperative orthopedic surgery consents, the patient was brought to the operating room and kept on her outpatient bed. After adequate TIVA anesthesia had been administered in combination with the block, scapula was stabilized and the arm was first manipulated in abduction. After achieving an excellent release with abduction, forward flexion was then followed by internal and external rotation as well as gentle abduction. The patient did receive a near normal range of passive motion. She was then awakened and taken back to outpatient in stable condition. TRANSINT:[id number] Voice Confirmation ID: [id number] DOCUMENT ID: [id number] DAHLIA MAGANA MD at 0908 CC: [id number] DICTATION DATE: 12/16/18 1546 HEATING ENGINEER: 12/17/18 0301 [facility] 12/16/18 [place] [id number]
== END 2018-12-16 17:05 | disposition home or self-care (01) ==
LOC: D.OPS 10:23 → D.PAN 17:00 → D.OPS 17:05
PROVIDERS: Anesthesiology; ATTEND Orthopaedic Surgery
DX: M75.01 Adhesive capsulitis of right shoulder (principal); Z96.611 Presence of right artificial shoulder joint